=== PATIENT | male | born 1975 | race Caucasian/White ===

== ENCOUNTER 2020-06-18 08:22 | Observation (INO) ==
[2020-06-18] MEDS ORDERED: Aspirin 81 MG TAB.CHEW PO ONE (08:48)
[2020-06-18 09:03] LABS: Basophils # 0.1 K/mcL (0.0-0.2); Basophils % 0.6 %; Eosinophils # 0.1 K/mcL (0.0-0.6); Eosinophils % 0.9 %; Hematocrit 44.4 % (37.5-50.1); Hemoglobin 14.8 g/dL (12.9-16.9); Immature Granulocytes % 0.7 % (0-4); Lymphocytes # 3.3 K/mcL (0.6-4.6); Lymphocytes % 24.2 %; Mean Corpuscular HGB Conc 33.3 g/dL (31.6-35.5); Mean Corpuscular Hemoglobin 29.1 pg (28.0-33.3); Mean Corpuscular Volume 87.4 fL (83.0-100.0); Mean Platelet Volume 9.6 fL (9.4-12.4); Monocytes # 1.8 K/mcL (0.0-1.3); Monocytes % 12.9 %; Neutrophils # 8.3 K/mcL (1.6-8.9); Platelet Count 238 K/mcL (140-400); Red Blood Count 5.08 M/mcL (4.19-5.50); Red Cell Distribution Width 12.7 % (11.5-14.5); Segmented Neutrophils % 60.7 %; White Blood Count 13.6 K/mcL (4.3-11.1)
[2020-06-18] MEDS: Nitroglycerin 0.4 MG TAB.SUBL SL SCH ×3 (09:08→10:37)
[2020-06-18 09:13] LABS: Prothrombin Time 11.7 Seconds (9.4-12.1)
[2020-06-18 09:16] LABS: Activated Partial Thrombo Time 30.3 Seconds (26.0-36.0)
[2020-06-18 09:25] LABS: Alanine Aminotransferase 26 Units/L (7-52); Albumin 3.7 g/dL (3.5-5.7); Albumin/Globulin Ratio 1.2 (1.1-2.2); Alkaline Phosphatase 83 Units/L (34-104); Aspartate Amino Transferase 19 Units/L (13-39); BUN/Creatinine Ratio 13 (6-26); Bilirubin,Total 0.3 mg/dL (0.3-1.0); Blood Urea Nitrogen 12 mg/dL (6-20); Calcium 8.7 mg/dL (8.6-10.3); Carbon Dioxide 26 mEq/L (23-29); Chloride 104 mEq/L (98-107); Globulin 3.1 g/dL (2.4-3.5); Glucose 96 mg/dL (70-105); Lipase 28 Units/L (11-82); Osmolality,Calculated 278 (280-300); Potassium 3.7 mEq/L (3.5-5.1); Sodium 134 mEq/L (136-145); Total Protein 6.8 g/dL (6.4-8.9); eGFR For African Americans > 60 (> 60); eGFR For Non-African Americans > 60 (> 60)
[2020-06-18 09:26] LABS: Troponin I < 0.03 ng/mL (< 0.04)
[2020-06-18] MEDS ORDERED: Acetaminophen 325 MG TABLET PO PRN (11:03)
[2020-06-18] MEDS ORDERED: Naloxone 0.4 MG/ML INJ IVP PRN (11:03)
[2020-06-18] MEDS: Nicotine 21 MG PATCH.TD24 TD SCH (12:03)
[2020-06-18] MEDS ORDERED: *HR* Heparin 5,000 UNIT/ML VIAL IVP PRN ×2 (17:09)
[2020-06-18] MEDS ORDERED: Perflutren Lipid Microsphere 1.3 ML in 0.9 % Sodium Chloride 8.7 ML IVP PRN (17:09)
[2020-06-18] MEDS ORDERED: *HR* Heparin 5,000 UNIT/ML VIAL IVP ONE (17:09)
[2020-06-18] MEDS ORDERED: Heparin 25,000UNIT/250ML 1/2NS 25,000 UNIT/250 ML IV.SOLN IVC SCH (17:15)
[2020-06-18 17:37] LABS: Heparin anti-factor XA UFH < 0.04 IU/mL (0.30-0.70)
[2020-06-18 17:38] LABS: Prothrombin Time 11.5 Seconds (9.4-12.1)
[2020-06-18] MEDS ORDERED: Melatonin 3 MG TABLET PO PRN (18:42)
[2020-06-18] MEDS: Morphine Sulfate 2 MG/ML SYRINGE IVP PRN (23:29)
[2020-06-18] MEDS: Nitroglycerin 0.4 MG TAB.SUBL SL PRN (23:30)
[2020-06-19] MEDS: Morphine Sulfate 2 MG/ML SYRINGE IVP PRN ×7 (02:10→14:48)
[2020-06-19] MEDS: Nitroglycerin 0.4 MG TAB.SUBL SL PRN ×3 (02:15→20:34)
[2020-06-19] MEDS ORDERED: ALPRAZolam 0.5 MG TABLET PO ONE ×2 (02:46→22:47)
[2020-06-19 04:50] LABS: Basophils # 0.1 K/mcL (0.0-0.2); Basophils % 0.8 %; Eosinophils # 0.1 K/mcL (0.0-0.6); Eosinophils % 1.1 %; Hematocrit 43.4 % (37.5-50.1); Hemoglobin 14.7 g/dL (12.9-16.9); Immature Granulocytes % 0.7 % (0-4); Lymphocytes # 3.5 K/mcL (0.6-4.6); Lymphocytes % 30.1 %; Mean Corpuscular HGB Conc 33.9 g/dL (31.6-35.5); Mean Corpuscular Hemoglobin 29.5 pg (28.0-33.3); Mean Platelet Volume 9.7 fL (9.4-12.4); Monocytes # 1.4 K/mcL (0.0-1.3); Monocytes % 12.2 %; Neutrophils # 6.5 K/mcL (1.6-8.9); Platelet Count 232 K/mcL (140-400); Red Blood Count 4.99 M/mcL (4.19-5.50); Red Cell Distribution Width 12.9 % (11.5-14.5); Segmented Neutrophils % 55.1 %; White Blood Count 11.8 K/mcL (4.3-11.1)
[2020-06-19 05:05] LABS: Estimated Average Glucose 114 mg/dl; Hemoglobin A1C 5.6 %
[2020-06-19 05:10] LABS: BUN/Creatinine Ratio 15 (6-26); Blood Urea Nitrogen 13 mg/dL (6-20); Calcium 9.1 mg/dL (8.6-10.3); Carbon Dioxide 25 mEq/L (23-29); Chloride 106 mEq/L (98-107); Chol/HDL Ratio 6.8 (0-4.9); Cholesterol 216 mg/dL (< 200); Glucose 106 mg/dL (70-105); HDL Cholesterol 32 mg/dL (40-59); LDL Cholesterol,Calculated 156 mg/dL (< 100); Osmolality,Calculated 285 (280-300); Potassium 4.1 mEq/L (3.5-5.1); Sodium 137 mEq/L (136-145); Triglycerides 141 mg/dL (< 150); Troponin I 0.21 ng/mL (< 0.04); eGFR For African Americans > 60 (> 60); eGFR For Non-African Americans > 60 (> 60)
[2020-06-19] MEDS ORDERED: Regadenoson 0.4 MG/5 ML SYRINGE IVP ONE (06:28)
[2020-06-19] MEDS: Nicotine 21 MG PATCH.TD24 TD SCH (08:58)
[2020-06-19] MEDS: Aspirin 81 MG TAB.CHEW PO SCH (08:58)
[2020-06-19] MEDS ORDERED: ISOVUE-370 200 ML INFUS..BTL ONE ×2 (12:33→13:21)
[2020-06-19] MEDS ORDERED: Heparin 1,000 UNITS/500 mL 500 ML ONE (12:33)
[2020-06-19] MEDS ORDERED: *HR* Heparin 10,000 UNIT/10 ML VIAL ONE (12:33)
[2020-06-19] MEDS ORDERED: 0.9 % Sodium Chloride 2,000 ML ONE (12:33)
[2020-06-19] MEDS ORDERED: Nitroglycerin 1,000 MCG/10 ML VIAL IV ONE (12:33)
[2020-06-19] MEDS ORDERED: *HR* Midazolam HCl 2 MG/2 ML VIAL ONE (12:41)
[2020-06-19] MEDS ORDERED: *HR* FentaNYL (PF) 100 MCG/2 ML VIAL ONE (12:41)
[2020-06-19] MEDS ORDERED: Tirofiban 12.5 MG/250ML 12.5 MG/250 ML BAG ONE (13:38)
[2020-06-19] MEDS ORDERED: *HR* Ticagrelor 90 MG TABLET ONE (13:44)
[2020-06-19] MEDS ORDERED: Tirofiban 12.5 MG/250ML 12.5 MG/250 ML BAG IVC SCH (14:00)
[2020-06-19] MEDS: *HR* Ticagrelor 90 MG TABLET PO SCH (20:32)
[2020-06-20 06:13] LABS: Hematocrit 46.8 % (37.5-50.1); Hemoglobin 15.1 g/dL (12.9-16.9); Mean Corpuscular HGB Conc 32.3 g/dL (31.6-35.5); Mean Corpuscular Hemoglobin 28.8 pg (28.0-33.3); Mean Corpuscular Volume 89.3 fL (83.0-100.0); Mean Platelet Volume 9.8 fL (9.4-12.4); Platelet Count 253 K/mcL (140-400); Red Blood Count 5.24 M/mcL (4.19-5.50); Red Cell Distribution Width 12.9 % (11.5-14.5); White Blood Count 12.4 K/mcL (4.3-11.1)
[2020-06-20 06:34] LABS: BUN/Creatinine Ratio 14 (6-26); Blood Urea Nitrogen 14 mg/dL (6-20); Carbon Dioxide 25 mEq/L (23-29); Chloride 106 mEq/L (98-107); Glucose 99 mg/dL (70-105); Osmolality,Calculated 283 (280-300); Sodium 136 mEq/L (136-145); eGFR For African Americans > 60 (> 60); eGFR For Non-African Americans > 60 (> 60)
[2020-06-20] MEDS: Morphine Sulfate 2 MG/ML SYRINGE IVP PRN (07:27)
[2020-06-20] MEDS: Nicotine 21 MG PATCH.TD24 TD SCH (07:48)
[2020-06-20] MEDS: Aspirin 81 MG TAB.CHEW PO SCH (07:49)
[2020-06-20] MEDS: *HR* Ticagrelor 90 MG TABLET PO SCH (07:49)
[2020-06-20] MEDS ORDERED: Isosorbide MONOnitrate (24 HR) 30 MG TAB.ER.24H PO SCH (09:15)
[2020-06-20 10:44] VITALS: BP 125/78
[2020-06-20] MEDS ORDERED: hydrOXYzine pamoate 25 MG CAPSULE PO ONE (12:55)
== END 2020-06-20 15:15 | disposition home or self-care (01) ==
LOC: EMEROOARM 08:22 → 3NENU 08:22 → SUATTDRO 11:03 → 3NENU 11:30
PROVIDERS: ADMIT Internal Medicine; ATTEND Student in an Organized Health Care Education/Training Program

== ENCOUNTER 2020-06-20 21:04 | Observation (INO) ==
[~2020-06-20 21:04] MED LIST: Adenosine 90 MG/30 ML MLS IV ONE
[2020-06-21] MEDS ORDERED: Naloxone 0.4 MG/ML INJ IVP PRN (01:15)
[2020-06-21] MEDS ORDERED: Famotidine 20 MG TABLET PO PRN (01:16)
[2020-06-21] MEDS ORDERED: Nitroglycerin 0.4 MG TAB.SUBL SL PRN (01:19)
[2020-06-21] MEDS: Isosorbide MONOnitrate (24 HR) 30 MG TAB.ER.24H PO SCH ×2 (01:36→08:24)
[2020-06-21] MEDS: Nicotine 21 MG PATCH.TD24 TD SCH ×2 (01:36→17:51)
[2020-06-21 06:29] LABS: Basophils # 0.1 K/mcL (0.0-0.2); Basophils % 0.5 %; Eosinophils # 0.1 K/mcL (0.0-0.6); Eosinophils % 1.3 %; Hematocrit 43.1 % (37.5-50.1); Hemoglobin 14.2 g/dL (12.9-16.9); Immature Granulocytes % 0.6 % (0-4); Lymphocytes # 2.5 K/mcL (0.6-4.6); Lymphocytes % 23.4 %; Mean Corpuscular HGB Conc 32.9 g/dL (31.6-35.5); Mean Corpuscular Hemoglobin 28.7 pg (28.0-33.3); Mean Corpuscular Volume 87.2 fL (83.0-100.0); Mean Platelet Volume 9.4 fL (9.4-12.4); Monocytes # 1.5 K/mcL (0.0-1.3); Monocytes % 13.6 %; Neutrophils # 6.5 K/mcL (1.6-8.9); Platelet Count 229 K/mcL (140-400); Red Blood Count 4.94 M/mcL (4.19-5.50); Red Cell Distribution Width 12.8 % (11.5-14.5); Segmented Neutrophils % 60.6 %; White Blood Count 10.6 K/mcL (4.3-11.1)
[2020-06-21 06:50] LABS: BUN/Creatinine Ratio 13 (6-26); Blood Urea Nitrogen 14 mg/dL (6-20); Calcium 8.6 mg/dL (8.6-10.3); Carbon Dioxide 27 mEq/L (23-29); Chloride 106 mEq/L (98-107); Glucose 97 mg/dL (70-105); Osmolality,Calculated 286 (280-300); Sodium 138 mEq/L (136-145); eGFR For African Americans > 60 (> 60); eGFR For Non-African Americans > 60 (> 60)
[2020-06-21 06:54] LABS: Troponin I 0.21 ng/mL (< 0.04)
[2020-06-21] MEDS: Sucralfate 1 GM TABLET PO SCH ×2 (08:24→11:13)
[2020-06-21] MEDS ORDERED: Acetaminophen 325 MG TABLET PO PRN (08:26)
[2020-06-21] MEDS ORDERED: *HR* Ticagrelor 90 MG TABLET PO SCH (09:00)
[2020-06-21] MEDS ORDERED: Aspirin 81 MG TAB.CHEW PO SCH (09:00)
[2020-06-21] MEDS ORDERED: Isovue-370 500 ML BOTTLE IVP ONE (11:05)
[2020-06-21] MEDS ORDERED: Ranolazine 500 MG TAB.ER.12H PO SCH (12:45)
[2020-06-21 14:48] VITALS: BP 100/60
== END 2020-06-21 17:59 | disposition home or self-care (01) ==
LOC: 3BNU → SUATTDRO 06-21 00:38
PROVIDERS: ADMIT Internal Medicine; ATTEND Student in an Organized Health Care Education/Training Program